=== PATIENT | female | born 1985 | race Caucasian/White ===

== ENCOUNTER 2022-12-10 07:06 | Day surgery (SDC) | payer OTHER ==
[~2022-12-10] VITALS: Ht 177.8 cm; Wt 170.1 kg
[~2022-12-10 07:06] MED LIST: AMOXICILLIN/CL875 MG PO; AMOXICILLIN500 MG PO; AUGMENTIN875 MG PO; B-121000 MC1 PO; BENZONATATE200 MG PO; BIRTH CONTROL; CIPROFLOXACN500 MG PO; CLARITIN10 M1 PO; D31000 UNIT PO; LISINOP/HCTZ1 TA2 PO; METRONIDAZOLE500 MG PO; MOUNJARO2.5 MG SC; PHENTERMINE HYD15 MG PO; PHYSICIANS1000 MCG/M IM; VIT E PO; [UNRECOGNIZED DRUG - OTHER] PO
[2022-12-10 09:32] VITALS: BP 153/82
== END 2022-12-10 09:20 | disposition home or self-care (01) | DRG 951 ==
LOC: ENDO 07:06 → ORM 10:15 → ENDO 10:15
PROVIDERS: ATTEND Surgery
PROC: 0DJD8ZZ Inspection of Lower Intestinal Tract, Via Natural or Artificial Opening Endoscopic (ICD-10-PCS; principal; 2022-12-10)
DX: Z12.11 Encounter for screening for malignant neoplasm of colon (principal); K57.30 Diverticulosis of large intestine without perforation or abscess without bleeding; I10 Essential (primary) hypertension; E66.9 Obesity, unspecified; Z86.010 Personal history of colon polyps